=== PATIENT | female | born 1990 | race Caucasian/White ===

== ENCOUNTER 2016-10-29 00:34 | Inpatient (IN) | payer MEDICARE, OTHER ==
--- NOTE | ~2016-10-29 | PA ---
Unit #: [id number] #: [id number] Patient: CHADD AMEZQUITA [id number] [facility] [address] [place] [address] [id number] MR#: [id number] NAME: CHADD AMEZQUITA ROOM: P212 Age: 26 Sex: F Admission Date: 10/29/2016 : 1990 Date of Assessment: Attending Physician: Deysi Kenny M.D. Admitting Physician: Deysi Kenny M.D. PSYCHIATRIC ASSESSMENT DATE OF SERVICE 10/29/2016 IDENTIFYING DATA Ms. Amezquita is a 26-year-old single white female, who is a resident of [place], [place]. She is known to us from previous encounter and was self-referred to the hospital on a voluntary basis. CHIEF COMPLAINT "I need help with my addiction." HISTORY OF PRESENT ILLNESS Ms. Amezquita is a 26-year-old white female with extensive history of substance abuse and dependence, who was self-referred to the hospital. Reports that she takes Suboxone, gabapentin, and Ambien. Also reports alcohol use and also reports increasing depression, and stated that she sees a psychiatrist and has been taking 10 to 12 gabapentin a day and reports that she also takes Zanaflex and Klonopin and she has been having significant withdrawal symptoms as she has been on cocktail of medications including Suboxone, Ambien, and Neurontin and has been mixing it with alcohol and has been abusing her Neurontin. States a day and has not been able to function and does report increasing depression, anxiety, irritability, restlessness, disturbed sleep, psychomotor retardation, feelings of hopelessness and helplessness. The patient reports that her relationship with her boyfriend is and she has been having significant consequences of addiction and has history of self-harming behavior including cutting and burning herself though currently she denies any suicidal or homicidal ideation. SUBSTANCE ABUSE HISTORY The patient has extensive history of substance abuse and dependence including alcohol, cocaine, opioids, amphetamines, benzodiazepines, and currently she has been abusing opioids and alcohol on a regular basis. She reports that she has been having a few drinks a day and has been using 2 to 3 g of heroin a day and has been using Suboxone. PAST PSYCHIATRIC HISTORY The patient has had history of inpatient chemical dependency treatment at [facility]. Review of the medical records indicate that currently she has been seeing a provider outside who has been giving her Klonopin t.i.d., Suboxone, along with Neurontin and Ambien. Unit #: [id number] #: [id number] Patient: CHADD AMEZQUITA PAST MEDICAL HISTORY The patient's medical history is insignificant. ALLERGIES No known medication allergies. PERSONAL AND SOCIAL HISTORY A 26-year-old white female, who reports that she is single, unemployed, and lives alone and has poor social support system. MENTAL STATUS EXAMINATION Young white female, who was casually dressed with fair personal hygiene, appears to be in no acute distress or discomfort. She was awake and alert on interaction with intact orientation to time, place, and person. Her mood was anxious and depressed with a congruent affect. Her speech was slow and restricted in content. Her thought processes were disorganized with some looseness of associations. She denies any suicidal or homicidal ideations, and also denies any auditory or visual hallucinations. Her insight and judgment remain significantly impaired. DIAGNOSTIC IMPRESSION Psychiatric: Opioid dependence, moderate, and acute withdrawals; alcohol abuse, moderate; cannabis abuse, moderate; opioid-induced mood disorder. Medical: None. Stressors: Moderate psychosocial stressors. TREATMENT PLAN 1. The patient has presented with history of substance abuse and mood disorder, and has been decompensating and will need inpatient hospitalization for detoxification, safety, and stabilization. We will start her on detox protocol. We will closely monitor for any worsening withdrawal symptoms. 2. Supportive therapy was provided to the patient. 3. Safe, structured, and nourishing environment will be provided. ESTIMATED LENGTH OF STAY 5 to 7 days. ABILITY TO HELP SELF Limited. WILLINGNESS TO HELP SELF The patient appears to be willing to help self. STRENGTHS 1. Communicative. 2. Cooperative. PROBLEMS 1. Chronic dysphoric symptoms. 2. Poor social support system. DISCHARGE CRITERIA This will be contingent upon the patient's ability to go through detox without having any significant withdrawal symptoms as well as her ability to stay safe to herself, particularly after discharge from the hospital. Dictated by... Unit #: [id number] #: [id number] Patient: CHADD AMEZQUITA M.D. IAA/royce TD: 10/29/2016 07:21 JOB #: [id number] PSYCHIATRIC ASSESSMENT Page 1 of 1 X Deysi Kenny MD PSYCHIATRIC ASSESSMENT
--- NOTE | ~2016-10-29 | DS ---
Unit #: [id number] #: [id number] Patient: CHADD AMEZQUITA [id number] [facility] [address] [place] [address] [id number] I MR#: [id number] NAME: CHADD AMEZQUITA ROOM: [facility] Age: 26 Sex: F Admission Date: 10/29/2016 : 1990 Discharge Date: 11/02/2016 Attending Physician: Deysi Kenny M.D. Primary Care Physician: Primary Care Physician No DISCHARGE SUMMARY IDENTIFYING DATA Ms. Amezquita is a 26-year-old single white female, who is a resident of [place], [place] and was self-referred to the hospital. DISCHARGE DIAGNOSES Psychiatric: Opioid dependence, moderate, in acute withdrawals. Alcohol abuse, moderate. Cannabis abuse, moderate. Opioid-induced mood disorder. Medical: None. Stressors: Moderate psychosocial stressors. HISTORY OF PRESENT ILLNESS Please see initial psychiatric evaluation for details. PAST PSYCHIATRIC HISTORY Please see initial psychiatric evaluation for details. PAST MEDICAL HISTORY Please see initial psychiatric evaluation for details. HOSPITAL COURSE The [facility] and was oriented to the hospital environment. Routine p.r.n. medications were initiated, and she was started back on her home medications and detox protocol was initiated as well. She was taking the medications regularly, was tolerating them fairly well and was able to show a decent and therapeutic response with improvement in depression and anxiety and was willing to continue treatment on an outpatient basis. DISCHARGE MEDICATIONS Zyprexa 10 mg at bedtime for mood. DISCHARGE CONDITION Stable. PROGNOSIS Fair. Dictated by... Deysi Kenny M.D. Unit #: [id number] #: [id number] Patient: CHADD AMEZQUITA IAA/modl TD: 11/02/2016 07:00 JOB #: [id number] DISCHARGE SUMMARY Page 1 of 1 X Deysi Kenny MD X DISCHARGE SUMMARY
--- NOTE | ~2016-10-29 | PN ---
Unit #: [id number] #: [id number] Patient: CHADD WOLFF [id number] [facility] [address] [place] [address] [id number] I MR#: [id number] NAME: CHADD WOLFF ROOM: [facility] Age: 26 Sex: F Admission Date: 10/29/2016 : 1990 Attending Physician: Deysi Kenny M.D. Admitting Physician: Deysi Kenny M.D. Primary Care Physician: Primary Care Physician Ro BUCK PROGRESS NOTES DATE 11/01/2016 DISCUSSION Ms. Wolff is a 26-year-old white female who was seen today and chart was reviewed and case was discussed with the staff. She has been anxious, withdrawn and reports still having some mood swings, irritability and wants the Zyprexa to be increased. Meanwhile, she has been compliant with treatment recommendations as she has been taking the medications and tolerating them fairly well. MENTAL STATUS EXAMINATION Young white female who was casually dressed with fair personal hygiene, appears to be in no acute distress or discomfort. She was awake and alert on interaction with intact orientation. Her mood was anxious with congruent affect. She denies any suicidal or homicidal ideations. Her insight and judgement remains slightly impaired. TREATMENT PLAN 1. We will continue her on her current medications and treatment protocol. We will monitor her response to the medication and make further adjustments as needed. 2. We will continue to follow up. Dictated by... Tamanna Smart/herman TD: 11/02/2016 23:39 JOB #: [id number] Unit #: [id number] #: [id number] Patient: CHADD WOLFF PROGRESS NOTES Page 1 of 1 X Deysi Kenny MD PROGRESS NOTE
--- NOTE | ~2016-10-29 | PN ---
Unit #: [id number] #: [id number] Patient: CHADD WOLFF [id number] [facility] [address] [place] [address] [id number] MR#: [id number] NAME: CHADD WOLFF ROOM: [facility] Age: 26 Sex: F Admission Date: 10/29/2016 : 1990 Attending Physician: Deysi Kenny M.D. Admitting Physician: Deysi Kenny M.D. Primary Care Physician: Primary Care Physician Ro BUCK PROGRESS NOTES DATE 10/31/2016 DISCUSSION Ms. Wolff is a 26-year-old white female who was seen today and chart was reviewed and case was discussed with the staff. She has been anxious and has been seclusive to herself. Meanwhile, she has been taking medications and tolerating them fairly well with no reported side effects. MENTAL STATUS EXAMINATION Young white female who was casually dressed with fair personal hygiene, appears to be in no acute distress or discomfort. She was awake and alert on interaction with intact orientation. Her mood was anxious with congruent affect. She denies any suicidal or homicidal ideations. Her insight and judgement remains slightly impaired. TREATMENT PLAN 1. We will continue her on her current treatment protocol. We will prescribe her p.r.n. Vistaril to help her with the anxiety. 2. We will continue to follow up. Dictated by... Tamanna Smart/herman TD: 11/01/2016 23:27 JOB #: [id number] Unit #: [id number] #: [id number] Patient: CHADD WOLFF PROGRESS NOTES Page 1 of 1 X Deysi Kenny MD X PROGRESS NOTE
--- NOTE | ~2016-10-29 | HP ---
Unit #: [id number] #: [id number] Patient: CIARRA AMEZQUITA [id number] [place] [address] [id number] MR#: [id number] NAME: CIARRA AMEZQUITA ROOM: P212 Age: 26 Sex: F Admission Date: 10/29/2016 : 1990 Attending Physician: Deysi Kenny M.D. Admitting Physician: Deysi Kenny M.D. Primary Care Physician: Primary Care Physician No HISTORY AND PHYSICAL HISTORY OF PRESENT ILLNESS Ciarra is a 26 year old admitted to [address] [place] [address] because of her polysubstance abuse which includes Suboxone, gabapentin, and benzodiazepines. PAST MEDICAL HISTORY 1. History of polysubstance abuse. 2. Hypothyroidism. 3. History of IV drugs. She has not used anything IV in a year. PAST SURGICAL HISTORY Nothing reported. ALLERGIES Thorazine. SOCIAL HISTORY Smokes 2 packs per day. Drinks alcohol socially. Admits to long history of illicit substance abuse to include IV heroin and methamphetamine. FAMILY HISTORY Medically noncontributory. REVIEW OF SYSTEMS CONSTITUTIONAL: No fever or chills. HEENT: Denies any sore throat, ear pain or runny nose. CARDIOVASCULAR: Denies chest pain, irregular heart rhythm or palpitations. CHEST: Denies shortness of breath or cough. No hemoptysis. GASTROINTESTINAL: Denies nausea, vomiting, diarrhea or chronic constipation. ENDOCRINE: Denies history of increased thirst or urination. No recent significant weight loss or gain. GENITOURINARY: Denies dysuria, frequency, or hematuria. SKIN: Denies any rashes. HEMATOLOGIC: Denies history of increased bleeding or bruising. MUSCULOSKELETAL: Denies any hot, swollen joints. No generalized muscle pain. NEUROLOGIC: Denies problems with vision or speech. No frequent, severe headaches. No numbness, tingling or weakness in any extremities. Denies loss of bladder or bowel control. CURRENT MEDICATIONS 1. Detox protocol. 2. Zyprexa 5 mg q.h.s. Unit #: [id number] #: [id number] Patient: CIARRA AMEZQUITA 3. Valtrex 500 mg q. day. 4. Nicotine patch 21 mg q. day. PAST MEDICAL HISTORY History of genital herpes. PHYSICAL EXAMINATION GENERAL: Alert, well nourished. No apparent distress. VITAL SIGNS: Blood pressure 105/72, heart rate 80, respirations 16, and temperature 98.6. WEIGHT: 147. HEIGHT: 5 feet 7 inches. SKIN: Warm and dry without rash or lesion. HEENT: Normocephalic. TMs not viewed. Oral and nasal passages clear. Conjunctivae clear. PERRLA. EOMs intact. NECK: Supple without lymphadenopathy or thyromegaly. HEART: Regular rate and rhythm without murmur. LUNGS: Clear. ABDOMEN: Soft, nontender. : Not done. EXTREMITIES: No evidence of cyanosis, clubbing or edema. Moves all without focal deficit. NEUROLOGICAL: Grossly within normal limits. Cranial Nerves: II: Visual pat are intact. III, IV AND : Extraocular movements are intact. Pupils are equal, round and reactive to light. V: Facial sensation is grossly normal. VII: Facial movements and expression are normal. VIII: Auditory acuity grossly intact. IX, X: Uvula is midline. Phonation is normal. XI: Patient shrugs shoulders and turns head normally. XII: Tongue protrudes in the midline. Sensory and Motor Function: Sensory and motor sensation is grossly normal. Motor: moves all extremities well. Coordination: Gait is normal. Deep Tendon Reflexes: Intact. IMPRESSION 1. Psychiatric admission. 2. History of illicit substance abuse. 3. Hypothyroidism. RECOMMENDATIONS PSYCHIATRIC: Per psychiatrist. MEDICAL: 1. I see no contraindication to participate in this facility's activities. 2. Detox per protocol. 3. The patient is admitted on no thyroid medications. We will start Synthroid 0.025 mg q. day. She knows she needs to follow up with the PCP because this medication will need to be increased. MEDICAL PROGNOSIS Good. MEDICAL CONDITION Stable. Unit #: [id number] #: [id number] Patient: CIARRA AMEZQUITA Dictated by... Sarah Grant P.A.-C. for Tamanna Murphy/caity TD: 10/30/2016 07:37 JOB #: [id number] HISTORY AND PHYSICAL Page 1 of 1 X Sarah Grant HISTORY AND PHYSICAL
--- NOTE | ~2016-10-29 | PN ---
Unit #: [id number] #: [id number] Patient: CHADD WOLFF [id number] [facility] [address] [place] [address] [id number] MR#: [id number] NAME: CHADD WOLFF ROOM: [facility] Age: 26 Sex: F Admission Date: 10/29/2016 : 1990 Attending Physician: Deysi Kenny M.D. Admitting Physician: Deysi Kenny M.D. Primary Care Physician: Primary Care Physician Ro BUCK PROGRESS NOTES DATE 10/30/2016 DISCUSSION Ms. Wolff is a 26-year-old white female who was seen today and chart was reviewed and case was discussed with the staff. She has been anxious, withdrawn and rather seclusive to herself. Meanwhile, she has been cooperative with treatment recommendations as she has been taking the medications and tolerating them fairly well. MENTAL STATUS EXAMINATION Young white female who was casually dressed with fair personal hygiene, appears to be in no acute distress or discomfort. She was awake and alert on interaction with intact orientation. Her mood was anxious with congruent affect. She denies any suicidal or homicidal ideations. Her insight and judgement remains slightly impaired. TREATMENT PLAN 1. We will continue her on her current medications and treatment protocol. We will monitor her response to the medication and make further adjustments as needed. 2. We will continue to follow up. Dictated by... Tamanna Smart/herman TD: 11/01/2016 03:49 JOB #: [id number] Unit #: [id number] #: [id number] Patient: CHADD WOLFF PROGRESS NOTES Page 1 of 1 X Deysi Kenyn MD X PROGRESS NOTE
[2016-10-29 09:39] LABS: BASOPHIL% 0.4 % (0-2.5); DIFF IND NO; EOSINOPHIL# 0.1 X10e3 (0-0.7); EOSINOPHIL% 2.1 % (0.0-7.0); HEMATOCRIT 38.4 % (35.0-45.0); HEMOGLOBIN 12.7 gm/dL (12.0-16.0); LYMPHOCYTE# 2.5 X10e3 (1.0-3.5); LYMPHOCYTE% 38.1 % (17.0-45.0); MEAN CELL VOLUME 95.4 FL (83-96); MEAN CORPUSCULAR HEMOGLOBIN 31.6 PG (28-34); MEAN CORPUSCULAR HGB CONC 33.2 g/dL (30-36); MEAN PLATELET VOLUME 8.1 FL (6.5-11.5); MONOCYTE# 0.4 X10e3 (0-1.0); NEUTROPHIL# 3.5 X10e3 (1.5-7.1); NEUTROPHIL% 53.4 % (40-75); PLATELET COUNT 270 X10e3 (140-420); RED BLOOD COUNT 4.02 X10e (3.90-5.30); RED CELL DISTRIBUTION WIDTH 13.1 % (11.0-15.5); WHITE BLOOD COUNT 6.6 X10e3 (4.0-10.5)
[2016-10-29 10:10] LABS: THYROID STIMULATING HORMONE >100.00 uIU/ml (0.34-5.60)
[2016-10-29 10:35] LABS: ALBUMIN SERUM 3.8 g/dL (3.5-5.0); BILIRUBIN,TOTAL 0.5 mg/dL (0.2-2.0); BUN/CREATININE RATIO 16.66; CALCIUM SERUM 8.9 mg/dL (8.4-10.2); CREATININE SERUM 0.9 mg/dL (0.6-1.4); GLOM FILT RATE Estimated 88.9 mL/min (>60); PROTEIN TOTAL SERUM 6.4 g/dL (6.0-8.3)
[2016-10-29 12:47] LABS: URINE APPEARANCE CLEAR; URINE BILIRUBIN NEG (NEG); URINE BLOOD NEG (NEG); URINE COLOR YELLOW; URINE GLUCOSE NEG (NEG); URINE KETONE NEG (NEG); URINE LEUKOCYTE ESTERASE NEG (NEG); URINE NITRATE NEG (NEG); URINE PROTEIN NEG (NEG); URINE SPECIFIC GRAVITY 1.019 (1.003-1.035); URINE UROBILINOGEN 0.2 MG/DL (NEG)
[2016-10-29 13:05] LABS: AMPHETAMINE NEG (NEG); BARBITURATES NEG (NEG); BENZODIAZEPINES POS (NEG); COCAINE NEG (NEG); MARIJUANA NEG (NEG); OPIATES NEG (NEG); TRICYCLIC ANTIDEPRESSANTS NEG (NEG); U METHADONE NEG (NEG)
== END 2016-11-02 09:24 | disposition home or self-care (01) | DRG 897 ==
LOC: P2S 00:34
PROVIDERS: Psychiatry & Neurology Psychiatry
PROC: HZ2ZZZZ Detoxification Services for Substance Abuse Treatment (ICD-10-PCS; principal; 2016-10-29)
DX: F11.23 Opioid dependence with withdrawal (principal); F10.10 Alcohol abuse, uncomplicated; E03.9 Hypothyroidism, unspecified; F17.210 Nicotine dependence, cigarettes, uncomplicated
CPT/HCPCS: 80053; 80307; 81003; 84439; 84443; 84703; 85025; 86592